=== PATIENT | female | born 1980 | race African-American/Black ===

== ENCOUNTER 2017-04-27 23:29 | Emergency (ER) | payer MEDICAID ==
[~2017-04-27 23:29] MED LIST: COLACE-DPS100 MG PO; MOTRIN-DPS400 MG PO; PRENATAL VIT1 TAB PO; TYLENOL #3 DPS1 TAB PO
--- NOTE | 2017-04-28 04:34 | ER ---
ADMIT: 04/27/2017 RM/LOC: [facility] MR#: [id number] [facility] [address] [place], [place] [address] SONU MEDINA [address] [facility] [place] [address] Emergency Room Report SEX: F AGE: 36 : 1980 DATE: 04/27/2017 The patient is a 36-year-old 18-week female, complaining of lower abdominal suprapubic pain. Denies any vaginal discharge or bleeding. Last menstrual period on December 05, 2016 3, para 2-0-2. Urinalysis; 2+ leukocyte esterase, less than 1 wbc, 4 rbc's. Culture pending. Bedside ultrasound showed heart activity 160s. Good motion. Placenta posteriorly without evidence of subchorionic hemorrhage. Macrobid 100 mg p.o. in department and b.i.d. x10 days. Follow up Dr. Cheng as scheduled on May 14. Clayton Sheth MD/ fredy JOB #: [id number] CC: Clayton Sheth MD, Attending Physician Tabby Cheng MD, Family Physician Tabby Cheng MD
== END 2017-04-28 00:45 | disposition home or self-care (01) ==
LOC: ER 23:29
DX: O23.12 Infections of bladder in pregnancy, second trimester (principal); Z3A.18 18 weeks gestation of pregnancy

== ENCOUNTER → 2017-05-15 | Outpatient (CLI) | payer MEDICAID | END | disposition home or self-care (01) | LOC: RAD.S 14:42 | DX: Z36 Encounter for antenatal screening of mother (principal); Z3A.21 21 weeks gestation of pregnancy ==